=== PATIENT | female | born 1965 | race Caucasian/White ===

== ENCOUNTER → 2020-08-15 | Outpatient (CLI) | payer MEDICARE ==
--- NOTE | 2020-08-15 13:34 | RADIOLOGY REPORT (SQ) ---
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 Liver mass was seen on a C T 1-1/2 months ago at outside facility. Abdominal pain intermittently. Decreased appetite. Previou s cholecystectomy. COMPARISON: None. TECHNIQUE: CT scan of the chest performed using helical scanning technique with dynamic intravenous contrast injection. Images reviewed with lung, soft tissue and bone windows. Reconstructed coronal and sagittal MPR and MIP images reviewed. All images stored on PACS. All CT scanners at this facility use dose modulation, iterative reconstruction, and/or weight based d osing when appropriate to reduce radiation dose to as low as reasonably achievable (ALARA). [facility]: Dose Right [facility]: CareDose [facility]: Dose Right [facility]: Teradose 4D [facility]: Q-Sensei CONTRAST TYPE AND DOSE: contrast/concentration: Isovue 350.00 mmol/ml; Total Contrast Delivered: 80. 0 ml; Total Saline Delivered: 40.0 ml RENAL FUNCTION: GFR > 60. RADIATION DOSE: CT Rad equipment meets quality standard of care and radiation dose reduction technTransferWise ues were employed. CTDIvol: 5.2 mGy. DLP: 202 mGy-cm. . LIMITATIONS: None. FINDINGS: LUNGS AND PLEURA: The trachea has normal caliber and appearance. No bronchial wall thicke nicky or bronchiectasis. No focal consolidation or pleural effusion. Mild biapical pleural and paren chymal scarring. No suspicious pulmonary nodules. No pneumothorax. HILAR AND MEDIASTINAL STRUCTURES: No identified masses or abnormal nodes. HEART AND VASCULAR STRUCTURES: No aneurysm or dissection. No central pulmonary emboli. No pericardi al effusion. HARDWARE: None in the chest. UPPER ABDOMEN: There is a 2.5 x 2 cm lesion in the left hepatic lobe which demonstrates peripheral pu ddling of contrast suggestive of a benign hepatic hemangioma. Status post cholecystectomy. No bilia ry ductal dilation. THYROID AND OTHER SOFT TISSUES: No masses. No adenopathy. BONES: No significant finding. OTHER: No other significant finding. IMPRESSION: 1. No acute cardiopulmonary disease. No suspicious pulmonary nodules. 2. Left hepatic lobe lesion with peripheral puddling of contrast suggestive of a benign hemangioma. Please see separate dictation MRI abdomen same date. TECHNICAL DOCUMENTATION: JOB ID: [id number] Quality ID # [id number]: Final reports with documentation of one or more dose reduction techniques (e.g., Au tomated exposure control, adjustment of the mA and/or kV according to patient size, use of iterative reconstruction technique) 2010 [employer]- All Rights Reserved Reading location - IP/workstation name: [email or web address]
--- NOTE | 2020-08-15 13:39 | RADIOLOGY REPORT (SQ) ---
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 Liver mass seen on outside CT 1.5 months ago. Intermittent abdominal pain and decreased appetit e. Nausea and abdominal pain. Previous cholecystectomy. COMPARISON: None. TECHNIQUE: Multiplanar multisequence imaging performed without and with contrast including sagittal, axial and coronal T2, axial T1, axial gradient fat sat T1, axial, sagittal and coronal fat sat T1 po st contrast. CONTRAST TYPE AND DOSE: 20 ML ProHance RENAL FUNCTION: Not indicated. ACR Type II contrast agent associated with few, if any, unconfounded cases of NSF LIMITATIONS: There is respiratory motion on multiple sequences which obscures some detail. FINDINGS: LIVER: The liver has normal size and contour. Within the medial left hepatic lobe there i s a 2.8 x 2.1 cm lobulated T2 hyperintense, T1 hypointense lesion which demonstrates peripheral nodul ar enhancement with puddling of contrast and gradual fill-in on delayed phase images, consistent with a benign hepatic hemangioma. SPLEEN: Normal size. No focal lesions. PANCREAS: No masses. No adjacent inflammation or peripancreatic fluid collections. Pancreatic duct no t dilated. GALLBLADDER: No masses. No stones. No gallbladder wall thickening or pericholecystic fluid. ADRENAL GLANDS: No significant masses or asymmetry. RIGHT KIDNEY AND URETER: Small renal cortical cysts. No solid mass or abnormal enhancement. No hydr onephrosis. LEFT KIDNEY AND URETER: Small renal cortical cysts. No solid mass. No hydronephrosis. AORTA AND VESSELS: No aneurysm. No dissection. Renal arteries, SMA, celiac without stenosis. RETROPERITONEUM: No retroperitoneal adenopathy, hemorrhage or masses. BOWEL: No visualized masses. No inflammation. No significant dilatation. ABDOMINAL WALL AND PERITONEUM: No hernias. No free fluid. BONES: No acute or significant findings. OTHER: No other significant finding. IMPRESSION: Benign hepatic hemangioma. No suspicious hepatic lesion. TECHNICAL DOCUMENTATION: JOB ID: [id number] [employer]- All Rights Reserved Reading location - IP/workstation name: [email or web address]
== END ==
LOC: RAD 07:45
PROVIDERS: ATTEND Internal Medicine
DX: R07.9 Chest pain, unspecified (principal); R10.2 Pelvic and perineal pain; R10.9 Unspecified abdominal pain; D37.8 Neoplasm of uncertain behavior of other specified digestive organs
CPT/HCPCS: 82565; 74183; 71260; A9576

== ENCOUNTER 2020-09-09 07:06 | Emergency (ER) | payer MEDICARE ==
[2020-09-09 07:18] VITALS: BP 133/67
[2020-09-09] MEDS ORDERED: ONDANSETRON HCL INJ/PF 4 MG/2 ML SDV IV ONE (08:32)
[2020-09-09] MEDS ORDERED: NORMAL SALINE 1000 ML 1,000 ML IV ONE (08:32)
--- NOTE | 2020-09-09 09:24 | RADIOLOGY REPORT (SQ) ---
EXAM DESCRIPTION: CHEST SINGLE VIEW IMAGES COMPLETED DATE/TIME: 09/09/2020 9:12 am REASON FOR STUDY: cough COMPARISON: None. EXAM PARAMETERS: NUMBER OF VIEWS: One view. TECHNIQUE: Single frontal radiographic view of the chest acquired. RADIATION DOSE: NA LIMITATIONS: None. FINDINGS: LUNGS AND PLEURA: No opacities, masses or pneumothorax. No pleural effusion. MEDIASTINUM AND HILAR STRUCTURES: No masses. Contour normal. HEART AND VASCULAR STRUCTURES: Heart normal in size. Normal vasculature. BONES: No acute findings. HARDWARE: None in the chest. OTHER: No other significant finding. IMPRESSION: NO ACUTE RADIOGRAPHIC FINDING IN THE CHEST. TECHNICAL DOCUMENTATION: JOB ID: [id number] 2010 [employer]- All Rights Reserved Reading location - IP/workstation name: [email or web address]
[2020-09-09] MEDS ORDERED: ONDANSETRON 4 MG TAB.RAPDIS PO ONE (09:41)
--- NOTE | 2020-09-09 09:47 | ER Document Report ---
ED General - General Chief Complaint: Flu Symptoms Stated Complaint: NAUSEA,CHILLS Time Seen by Provider: 09/09/20 08:30 Primary Care Provider: PANKAJ VO MD [Primary Care Provider] - Follow up as needed - [facility] Notes: Chief complaint: Abdominal pain and nausea History of present illness: 55-year-old female reports past history of peptic ulcer disease previously taking ranitidine now out of medication having intermittent cramping epigastric discomfort with some associated nausea without vomiting. Weight is stable. Normal bowel movements. Previous cholecystectomy. No other surgery. Says she had an abdominal CT obtained by her primary care provider about 6 months ago I subsequently recommended MRI abdomen pelvis which was done here. She says she did not have a full understanding of abnormalities detected but was told that she "might have some cysts" involving the liver and ovaries. I was able to pull records on this study from 08/05/2020 and what it showed was probable hepatic hemangioma. She subsequently was seen by Dr. Setven in the oncology clinic and had tumor markers checked which were apparently normal. She smokes about 1/3 pack of cigarettes per day. She drinks alcohol socially. She denies use of salicylates or NSAIDs. Also has concern about a possible abdominal wall hernia. 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 Says she is not been back to see her primary care doctor because she "just has not had time". Patient denies any known Covid exposure. She has not been tested for Covid. She denies fever chills. Has some occasional dry cough. 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 Weight stable. HENT: Negative for sore throat. Eyes: Negative for visual changes. Cardiovascular: Negative for chest pain. Respiratory: Nonproductive cough. Negative for shortness of breath. Gastrointestinal: As per HPI. Genitourinary: Negative for dysuria. Musculoskeletal: Negative for back pain. Skin: Negative for rash. Neurological: Negative for headaches, focal weakness or numbness. 10 point ROS negative except as marked above and in HPI. Physical Exam - Vital signs Vitals: Temp Pulse Resp BP Pulse Ox 97.7 F 69 16 133/67 H 99 09/09/20 07:14 09/09/20 07:14 09/09/20 07:14 09/09/20 07:14 09/09/20 07:14 - Notes Notes: GENERAL: Slender middle-age female appearing in no acute distress. SKIN: Good turgor no rashes. HEAD: Normocephalic atraumatic. EYES: PERRLA. EOMI. Conjunctivae and sclerae clear. EARS: CANALS AND TMS CLEAR. NOSE: CLEAR. MOUTH: Moist mucosa. Good dentition. No stridor or edema. No drooling. NECK: Supple. No masses or thyromegaly. No adenopathy. Carotids 2+ without bruits. No JVD. BACK: Symmetrical without tenderness. CHEST: Respirations unlabored. Few scattered wheezes bilaterally which clear with deep cough. HEART: Regular rhythm. No murmur gallop or rub. ABDOMEN: Mild diastases recti upper abdomen. No gross herniation. Soft nontender without masses, organomegaly or rebound. Bowel sounds normally active. No bruits. GENITALIA: Deferred. EXTREMITIES: No edema. No calf tenderness. Cap refill less than 1.5 seconds. Dorsalis pedis and posterior tibial pulses 3+ and symmetrical. NEUROLOGICAL: GCS 15. Alert and oriented x3. Normal gait. Fluent speech. Cranial nerves II through XII intact. Sensorimotor and cerebellar normal. Normal tone. PSYCHIATRIC: Appropriate affect. Course - Re-evaluation Re-evalutation: 09/09/20 12:08 Labs unremarkable. Nonsurgical abdomen by exam. I think this lady probably has gastritis but will need follow-up with her primary care physician and she has ongoing symptoms may need EGD as an outpatient. Findings, clinical impression and plan of treatment have been discussed with patient/family. Understanding of current findings and recommendations has been acknowledged by them and there is agreement regarding disposition and follow-up. - Vital Signs Vital signs: Temp Pulse Resp BP Pulse Ox 97.7 F 69 22 H 133/67 H 100 09/09/20 07:14 09/09/20 07:14 09/09/20 10:00 09/09/20 07:14 09/09/20 10:00 - Laboratory Result Diagrams: 09/09/20 10:10 09/09/20 10:10 Laboratory results interpreted by me: 09/09/20 10:10 Urine Blood SMALL H - Diagnostic Test Radiology reviewed: Reports reviewed - Normal chest x-ray per radiologist. Discharge - Discharge Clinical Impression: Abdominal pain Condition: Stable Disposition: HOME, SELF-CARE Additional Instructions: Return here as needed for new or worsening symptoms. Follow-up with your primary care physician within the next 3 to 5 days Prescription medication has been written for you until you can be seen by your doctor. 3-day work note has been provided for you. Prescriptions: Sucralfate [Carafate 1 gm Tablet] 1 gm PO ACHS #120 tablet Forms: Return to Work Referrals: PANKAJ VO MD [Primary Care Provider] - Follow up as needed
[2020-09-09] MEDS ORDERED: MAG HYDROX/AL HYDROX/SIMETH SUSP 30 ML UDCUP PO ONE (10:20)
[2020-09-09 10:26] LABS: APPEARANCE,URINE CLEAR; BILIRUBIN,URINE NEGATIVE (NEGATIVE); COLOR,URINE STRAW; GLUCOSE, URINE NEGATIVE (NEGATIVE); KETONES,URINE NEGATIVE (NEGATIVE); PROTEIN,URINE NEGATIVE (NEGATIVE); URINE SPECIFIC GRAVITY 1.003; UROBILINOGEN,URINE NEGATIVE mg/dL (<2.0)
[2020-09-09 10:32] LABS: ABSOLUTE BASOPHILS # (AUTO) 0.1 10^3/uL (0.0-0.2); ABSOLUTE EOSINOPHILS # (AUTO) 0.4 10^3/uL (0.0-0.6); ABSOLUTE LYMPHOCYTES (AUTO) 2.6 10^3/uL (0.5-4.7); ABSOLUTE MONOCYTES (AUTO) 0.4 10^3/uL (0.1-1.4); BASOPHILS % (AUTO) 0.7 % (0-2); EOSINOPHILS % (AUTO) 4.2 % (0-6); HEMATOCRIT 40.7 % (36.0-47.0); LYMPHOCYTES % (AUTO) 27.5 % (13-45); MEAN CORPUSCULAR HGB CONC 34.4 g/dL (32.0-36.0); MEAN CORPUSCULAR VOLUME 87 fl (80-97); MONOCYTES % (AUTO) 3.9 % (3-13); PLATELET COUNT 299 10^3/uL (150-450); RED BLOOD COUNT 4.67 10^6/uL (3.72-5.28); RED CELL DISTRIBUTION WIDTH 13.3 % (11.5-14.0); SEGMENTED NEUTROPHILS % (AUTO) 63.7 % (42-78); TOTAL CELLS COUNTED % (AUTO) 100 %; WHITE BLOOD COUNT 9.4 10^3/uL (4.0-10.5)
[2020-09-09] MEDS ORDERED: LIDOCAINE 2% VISCOUS SOLN 15 ML UDCUP PO ONE (10:32)
[2020-09-09 10:38] LABS: ALBUMIN 4.5 g/dL (3.5-5.0); ALKALINE PHOSPHATASE 110 U/L (38-126); ANION GAP 8 (5-19); ASPARTATE AMINO TRANSFERASE 26 U/L (14-36); BILIRUBIN,DIRECT 0.2 mg/dL (0.0-0.4); BILIRUBIN,TOTAL 0.6 mg/dL (0.2-1.3); BLOOD UREA NITROGEN 11 mg/dL (7-20); CALCIUM 9.9 mg/dL (8.4-10.2); CARBON DIOXIDE 29 mmol/L (22-30); CHLORIDE 103 mmol/L (98-107); GLUCOSE 97 mg/dL (75-110); POTASSIUM 4.1 mmol/L (3.6-5.0); TOTAL PROTEIN 7.2 g/dL (6.3-8.2)
== END 2020-09-09 12:28 | disposition home or self-care (01) ==
LOC: ER 07:06
DX: K27.9 Peptic ulcer, site unspecified, unspecified as acute or chronic, without hemorrhage or perforation (principal); F17.210 Nicotine dependence, cigarettes, uncomplicated; R05 Cough; F17.200 Nicotine dependence, unspecified, uncomplicated; Z88.8 Allergy status to other drugs, medicaments and biological substances; Z88.6 Allergy status to analgesic agent; Z88.5 Allergy status to narcotic agent; Z88.2 Allergy status to sulfonamides
CPT/HCPCS: 99284; 36415; 85025; 80053; 81001; 71045; A9270 ×2; J3490; S0119

== ENCOUNTER 2020-11-22 05:33 | Day surgery (SDC) | payer MEDICARE ==
[2020-11-19 09:36] LABS: APPEARANCE,URINE CLEAR; BILIRUBIN,URINE NEGATIVE (NEGATIVE); COLOR,URINE STRAW; GLUCOSE, URINE NEGATIVE (NEGATIVE); KETONES,URINE NEGATIVE (NEGATIVE); LEUKOCYTE ESTERASE,URINE TRACE (NEGATIVE); NITRITE,URINE NEGATIVE (NEGATIVE); PROTEIN,URINE NEGATIVE (NEGATIVE); URINE SPECIFIC GRAVITY 1.005; UROBILINOGEN,URINE NEGATIVE mg/dL (<2.0)
--- NOTE | 2020-11-19 10:07 | RADIOLOGY REPORT (SQ) ---
EXAM DESCRIPTION: CHEST 2 VIEWS IMAGES COMPLETED DATE/TIME: 11/19/2020 9:46 am REASON FOR STUDY: PRE OP COMPARISON: 09/09/2020 EXAM PARAMETERS: NUMBER OF VIEWS: two views TECHNIQUE: Digital Frontal and Lateral radiographic views of the chest acquired. RADIATION DOSE: NA LIMITATIONS: none FINDINGS: LUNGS AND PLEURA: No opacities, masses or pneumothorax. No pleural effusion. MEDIASTINUM AND HILAR STRUCTURES: No masses or contour abnormalities. HEART AND VASCULAR STRUCTURES: Heart normal size. No evidence for failure. BONES: No acute findings. HARDWARE: None in the chest. OTHER: No other significant finding. IMPRESSION: NO ACUTE RADIOGRAPHIC FINDING IN THE CHEST. TECHNICAL DOCUMENTATION: JOB ID: [id number] 2010 [employer]- All Rights Reserved Reading location - IP/workstation name: [email or web address]
[2020-11-19 10:08] LABS: HEMATOCRIT 37.2 % (36.0-47.0); MEAN CORPUSCULAR HEMOGLOBIN 29.8 pg (27.0-33.4); MEAN CORPUSCULAR VOLUME 85 fl (80-97); PLATELET COUNT 292 10^3/uL (150-450); RED BLOOD COUNT 4.38 10^6/uL (3.72-5.28); RED CELL DISTRIBUTION WIDTH 12.6 % (11.5-14.0); WHITE BLOOD COUNT 7.9 10^3/uL (4.0-10.5)
[2020-11-19 10:38] LABS: ALBUMIN 4.3 g/dL (3.5-5.0); ALKALINE PHOSPHATASE 96 U/L (38-126); ANION GAP 6 (5-19); ASPARTATE AMINO TRANSFERASE 19 U/L (14-36); BILIRUBIN,DIRECT 0.3 mg/dL (0.0-0.4); BILIRUBIN,TOTAL 0.4 mg/dL (0.2-1.3); BLOOD UREA NITROGEN 11 mg/dL (7-20); CALCIUM 9.7 mg/dL (8.4-10.2); CARBON DIOXIDE 31 mmol/L (22-30); CHLORIDE 103 mmol/L (98-107); GLUCOSE 91 mg/dL (75-110); POTASSIUM 4.3 mmol/L (3.6-5.0); TOTAL PROTEIN 7.4 g/dL (6.3-8.2)
--- NOTE | 2020-11-19 14:55 | EKG REPORT ---
SEVERITY:- BORDERLINE ECG - SINUS RHYTHM PROBABLE LEFT ATRIAL ABNORMALITY : Confirmed by: Radha Rodriguez 19-Nov-2020 14:54:07
[~2020-11-22 05:33] MED LIST: CEFAZOLIN 1 GM/D5W RTU 1 GM/50 ML RTUPB IV PRN; LACTATED RINGERS 1000 ML IV PRN; LIDOCAINE 0.5% INJ-PF (5 MG/ML) 50 ML SDV SUBCUT PRN
[2020-11-22] MEDS ORDERED: CEFAZOLIN 1 GM/D5W RTU 1 GM/50 ML RTUPB IV ONE (05:38)
[2020-11-22] MEDS ORDERED: NA PHOS,M-B/NA PHOS,DI-BA (ADULT) 133 ML ENEMA PR ONE ×2 (06:20→07:00)
[2020-11-22] MEDS ORDERED: FENTANYL CITRATE INJ/PF 250 MCG/5 ML AMPULE ONE (06:44)
[2020-11-22] MEDS ORDERED: PROPOFOL 0 MG/0 ML INFUS..BTL IV ONE (06:45)
[2020-11-22] MEDS ORDERED: MIDAZOLAM 2 MG/2 ML INJ ONE (06:45)
[2020-11-22] MEDS ORDERED: HYDROMORPHONE HCL INJ/PF 2 MG/ML AMPULE ONE (06:45)
[2020-11-22] MEDS ORDERED: EPHEDRINE SULFATE INJ 50 MG/1 ML AMPULE ONE (06:45)
[2020-11-22] MEDS ORDERED: SUGAMMADEX SODIUM 200 MG/2 ML SDV IV ONE (06:45)
[2020-11-22] MEDS ORDERED: PROPOFOL INJ 200 MG/20 ML VIAL IV ONE (06:46)
[2020-11-22] MEDS ORDERED: LIDOCAINE 2% INJ (20 MG/ML) 20 ML MDV ONE (06:48)
[2020-11-22] MEDS ORDERED: LIDOCAINE 1%/EPINEPHRINE INJ 20 ML VIAL ONE (07:06)
[2020-11-22] MEDS ORDERED: ESTROGENS,CONJUGATED 0.625 MG/1 GM 30 GM TUBE PV ONE (08:00)
[2020-11-22] MEDS ORDERED: FENTANYL CITRATE INJ/PF 100 MCG/2 ML AMPUL IV PRN ×3 (08:16)
[2020-11-22] MEDS ORDERED: MEPERIDINE HCL/PF INJ 25 MG/1 ML DISP.SYRIN IV PRN (08:16)
[2020-11-22] MEDS ORDERED: DIPHENHYDRAMINE HCL 50 MG/ML VIAL IV PRN (08:16)
[2020-11-22] MEDS ORDERED: PROMETHAZINE HCL INJ 25 MG/1 ML VIAL IV PRN ×3 (08:16→09:22)
[2020-11-22] MEDS ORDERED: SIMETHICONE 80 MG TAB.CHEW PO PRN (09:22)
[2020-11-22] MEDS ORDERED: OXYCODONE-ACETAMINOPHEN 5-325 MG TABLET PO PRN ×2 (09:22)
[2020-11-22] MEDS ORDERED: ACETAMINOPHEN 325 MG TABLET PO PRN (09:22)
--- NOTE | 2020-11-22 09:37 | Operative Report ---
Operative Report DATE OF SURGERY: 11/22/20 PREOPERATIVE DIAGNOSIS: uterine fibroids, uterovaginal prolapse, pelvic pain POSTOPERATIVE DIAGNOSIS: Same OPERATION: Attic assisted total laparoscopic hysterectomy with bilateral salpingo-oophorectomy SURGEON: ARNOLD BRANDON ANESTHESIA: GA TISSUE REMOVED OR ALTERED: Uterus cervix bilateral fallopian tubes and ovaries COMPLICATIONS: None ESTIMATED BLOOD LOSS: 100 cc INTRAOPERATIVE FINDINGS: 6 weeks size uterus grade 1-2 prolapse of the anterior vagina at the beginning of case, left ovary had to cystic-appearing masses on the ovary they did look benign in nature however were very inconsistent with the rest of the ovarian tissue, once the hysterectomy was completed the vagina was reinspected and the anterior prolapse had been corrected with the incorporation of the uterosacral ligament and the vaginal cuff closure PROCEDURE: Patient was taken to the operating room prepared and draped in normal sterile fashion in dorsolithotomy position. Under sterile conditions a Senior catheter was placed to gravity. Speculum was placed into the vagina and the cervix was grasped on the anterior lip with a single-tooth tenaculum. The cervix was then dilated to accommodate a medium V care uterine manipulator. Manipulator was placed gloves were changed and attention was turned to the upper portion of the case. A 2-1/2 cm umbilical skin incision was made 11 blade and this was carried through to the underlying layer of fascia with the same 11 blade. It was grasped to Chuy's acted with Anuj's. New cavity was entered bluntly. A GelPort was placed in a normal fashion the camera port and air seal in the appropriate locations. Blanco was then inflated with approximately 2 L of CO2 gas. The camera was then introduced into the peritoneal cavity through the camera port and the patient was placed in steep Trendelenburg. The above findings were note d. Under direct visualization two 5 mm ports were placed approximately 10 cm on either side of the umbilicus. The robot was then docked with the vessel sealer placed on the patient's left and the monopolar scissors placed placed on the patient's right. I then unscrubbed and set at the robotic console beginning with the left adnexa the IP ligament was transected from the vaginal sidewall using the vessel sealer and monopolar scissors as needed. The uterine artery was skeletonized using blunt dissection and ligated using the vessel sealer down to the level of the external cervical os. The bladder flap was then begun using monopolar scissors and blunt dissection over the V care cup noted through the mucosa. Attention was then turned to the right adnexa where the IP ligament was transected in a similar fashion. The Uterine artery was then transected using the vessel sealer and skeletonized using blunt dissection. The vessel sealer was again used to completely transect the uterine artery down to the level of the external cervical os. The bladder flap was completed using similar sharp and blunt dissection. Once the bladder was felt to be adequately away from the lower uterine segment, the colpotomy was begun on the anterior aspect of the cervix following the outline of the V care cup mucosa. The cup was followed in a circumferential fashion completely around the cervix estimate was completely freed. The specimen was then removed through the vaginal defect. The instruments were then changed to a Gideon needle tank driver and pro-grasp. AV lock needle was introduced through the assistance port. The lock needle was used to close the vaginal cuff and hemostasis. The needle was then removed through the assistance port. The peritoneal cavity was carefully inspected the ureters were noted to both be peristalsing and there was no signs of hydroureter. The robot was then undocked. The fascia was closed at the umbilical skin incision seen 0 Vicryl 3 skin incisions were closed using 4-0 Vicryl. The vagina was then examined once more under sterile conditions . The previously noted anterior prolapse was significantly better . Anesthesia had the patient Valsalva and the there was no signs of prolapse with Valsalva . For the decision was made to forego doing the anterior repair that was listed as a possible procedure. sponge lap and needle counts were correct x2 and the patient was taken to recovery in stable condition.
[2020-11-22] MEDS ORDERED: FENTANYL CITRATE INJ/PF 100 MCG/2 ML AMPUL ONE (09:48)
[2020-11-22] MEDS ORDERED: ACETAMINOPHEN 1,000 MG/100 ML RTUPB IV ONE (10:22)
[2020-11-22] MEDS ORDERED: OXYCODONE-ACETAMINOPHEN 5-325 MG TABLET ONE (10:22)
[2020-11-22] MEDS: DOCUSATE SODIUM 100 MG CAPSULE PO SCH ×2 (12:37→18:19)
[2020-11-22] MEDS ORDERED: DIPHENHYDRAMINE HCL 50 MG/ML VIAL ONE (14:41)
[2020-11-22] MEDS ORDERED: SUCCINYLCHOLINE CHLORIDE INJ 200 MG/10 ML VIAL ONE (14:41)
[2020-11-22] MEDS ORDERED: METOPROLOL TARTRATE PF/INJ 5 MG/5 ML SDV IV ONE (14:41)
[2020-11-22] MEDS ORDERED: ONDANSETRON HCL INJ/PF 4 MG/2 ML SDV ONE (14:41)
[2020-11-22] MEDS ORDERED: DEXAMETHASONE SOD PHOSPHATE INJ 4 MG/1 ML VIAL ONE (14:41)
[2020-11-22] MEDS ORDERED: METOCLOPRAMIDE HCL INJ/PF 10 MG/2 ML SDV ONE (14:41)
[2020-11-22] MEDS ORDERED: ROCURONIUM BROMIDE INJ 50 MG/5 ML VIAL IV ONE (14:41)
[2020-11-22] MEDS ORDERED: KETOROLAC TROMETHAMINE 60 MG/2 ML SDV ONE (14:41)
[2020-11-22] MEDS: KETOROLAC TROMETHAMINE INJ/PF 30 MG/1 ML SDV IV SCH ×2 (15:03→22:43)
[2020-11-22] MEDS: RINGERS SOLUTION,LACTATED 1,000 ML IV PRN (15:19)
[2020-11-22] MEDS: HYDROMORPHONE HCL INJ/PF 2 MG/ML AMPULE IV PRN ×2 (18:18→23:57)
[2020-11-23] MEDS: RINGERS SOLUTION,LACTATED 1,000 ML IV PRN (00:04)
[2020-11-23] MEDS: HYDROMORPHONE HCL INJ/PF 2 MG/ML AMPULE IV PRN (03:48)
[2020-11-23] MEDS: KETOROLAC TROMETHAMINE INJ/PF 30 MG/1 ML SDV IV SCH (06:18)
[2020-11-23 06:56] LABS: HEMOGLOBIN 10.8 g/dL (12.0-15.5); MEAN CORPUSCULAR HEMOGLOBIN 29.4 pg (27.0-33.4); MEAN CORPUSCULAR HGB CONC 33.8 g/dL (32.0-36.0); MEAN CORPUSCULAR VOLUME 87 fl (80-97); PLATELET COUNT 244 10^3/uL (150-450); RED BLOOD COUNT 3.67 10^6/uL (3.72-5.28); RED CELL DISTRIBUTION WIDTH 13.3 % (11.5-14.0); WHITE BLOOD COUNT 12.1 10^3/uL (4.0-10.5)
--- NOTE | 2020-11-23 07:55 | PDOC DISCHARGE SUMMARY ---
Impression - Admit/DC Date/PCP Admission Date/Primary Care Provider: LITZY VO PA-C Discharge Date: 11/23/20 - Discharge Diagnosis (1) Uterovaginal prolapse Is this a current diagnosis for this admission?: Yes (2) Abnormal uterine bleeding Is this a current diagnosis for this admission?: Yes (3) Pelvic pain Is this a current diagnosis for this admission?: Yes - Assessment Summary: Patient underwent a robotic assisted total laparoscopic hysterectomy with bilateral salpingectomy and bilateral oophorectomy. She has had an unremarkable postoperative course and is tolerating a regular diet voiding on her own ambulating well and passing flatus. Is now ready for discharge home - Additional Information Resuscitation Status: Full Code Discharge Diet: As Tolerated Discharge Activity: Balance Activity w/Rest, No Driving, No Lifting Over 10 Pounds, No Lifting/Push/Pulling, Pelvic Rest, No tub bath, Walk Frequently Referrals: ARNOLD BRANDON MD [ACTIVE STAFF] - 12/07/20 10:00 am ( CALL THE OFFICE OF ANY QUESTIONS OR CONCERNS.) LITZY VO PA-C [Primary Care Provider] - Prescriptions: Oxycodone HCl/Acetaminophen [Percocet 5-325 mg Tablet] 1 tab PO Q4HP PRN #20 tablet PRN Reason: Ketorolac Tromethamine [Toradol 10 mg Tablet] 10 mg PO Q6HP PRN #30 tablet PRN Reason: Docusate Sodium [Colace 100 mg Capsule] 100 mg PO BID #60 capsule Home Medications: Trazodone HCl 150 mg PO QHS 11/19/20 Citalopram Hydrobromide [Citalopram HBr] 40 mg PO QHS 11/22/20 Levothyroxine Sodium [Euthyrox] 100 mcg PO Q6AM 11/22/20 Docusate Sodium [Colace 100 mg Capsule] 100 mg PO BID #60 capsule 11/23/20 Ketorolac Tromethamine [Toradol 10 mg Tablet] 10 mg PO Q6HP PRN #30 tablet 11/23/20 Oxycodone HCl/Acetaminophen [Percocet 5-325 mg Tablet] 1 tab PO Q4HP PRN #20 tablet 11/23/20 History of Present Illiness History of Present Illness: QUINTEN JAMES is a 55 year old female Physical Exam - Physical Exam Vital Signs: Temp Pulse Resp BP Pulse Ox 97.5 F 64 16 112/60 95 11/23/20 03:39 11/23/20 03:39 11/23/20 03:39 11/23/20 03:39 11/23/20 03:39 Intake & Output 11/22/20 11/23/20 11/24/20 06:59 06:59 06:59 Intake Total 2725 Output Total 1500 Balance 1225 Results Laboratory Results: WBC 12.1 10^3/uL (4.0-10.5) H 11/23/20 06:29 RBC 3.67 10^6/uL (3.72-5.28) L 11/23/20 06:29 Hgb 10.8 g/dL (12.0-15.5) L 11/23/20 06:29 Hct 32.0 % (36.0-47.0) L 11/23/20 06:29 MCV 87 fl (80-97) 11/23/20 06:29 MCH 29.4 pg (27.0-33.4) 11/23/20 06:29 MCHC 33.8 g/dL (32.0-36.0) 11/23/20 06:29 RDW 13.3 % (11.5-14.0) 11/23/20 06:29 Plt Count 244 10^3/uL (150-450) 11/23/20 06:29 Sodium 140.4 mmol/L (137-145) 11/19/20 09:06 Potassium 4.3 mmol/L (3.6-5.0) 11/19/20 09:06 Chloride 103 mmol/L (98-107) 11/19/20 09:06 Carbon Dioxide 31 mmol/L (22-30) H 11/19/20 09:06 Anion Gap 6 (5-19) 11/19/20 09:06 BUN 11 mg/dL (7-20) 11/19/20 09:06 Creatinine 0.48 mg/dL (0.52-1.25) L 11/19/20 09:06 Est GFR ( Amer) > 60 (>60) 11/19/20 09:06 Est GFR (MDRD) Non-Af > 60 (>60) 11/19/20 09:06 Glucose 91 mg/dL (75-110) 11/19/20 09:06 Calcium 9.7 mg/dL (8.4-10.2) 11/19/20 09:06 Total Bilirubin 0.4 mg/dL (0.2-1.3) 11/19/20 09:06 Direct Bilirubin 0.3 mg/dL (0.0-0.4) 11/19/20 09:06 Neonat Total Bilirubin Not Reportable 11/19/20 09:06 Neonat Direct Bilirubin Not Reportable 11/19/20 09:06 Neonat Indirect Bili Not Reportable 11/19/20 09:06 AST 19 U/L (14-36) 11/19/20 09:06 ALT 13 U/L (<35) 11/19/20 09:06 Alkaline Phosphatase 96 U/L (38-126) 11/19/20 09:06 Total Protein 7.4 g/dL (6.3-8.2) 11/19/20 09:06 Albumin 4.3 g/dL (3.5-5.0) 11/19/20 09:06 Urine Color STRAW 11/19/20 08:45 Urine Appearance CLEAR 11/19/20 08:45 Urine pH 8.0 (5.0-9.0) 11/19/20 08:45 Ur Specific [place] 1.005 11/19/20 08:45 Urine Protein NEGATIVE mg/dL (NEGATIVE) 11/19/20 08:45 Urine Glucose (UA) NEGATIVE mg/dL (NEGATIVE) 11/19/20 08:45 Urine Ketones NEGATIVE mg/dL (NEGATIVE) 11/19/20 08:45 Urine Blood NEGATIVE (NEGATIVE) 11/19/20 08:45 Urine Nitrite NEGATIVE (NEGATIVE) 11/19/20 08:45 Urine Bilirubin NEGATIVE (NEGATIVE) 11/19/20 08:45 Urine Urobilinogen NEGATIVE mg/dL (<2.0) 11/19/20 08:45 Ur Leukocyte Esterase TRACE (NEGATIVE) H 11/19/20 08:45 Urine RBC (Auto) 0 /HPF 11/19/20 08:45 Urine Bacteria (Auto) TRACE /HPF 11/19/20 08:45 Squamous Epi Cells Auto <1 /HPF 11/19/20 08:45 Urine Mucus (Auto) RARE /LPF 11/19/20 08:45 Urine Ascorbic Acid NEGATIVE (NEGATIVE) 11/19/20 08:45 Urine HCG, Qual NEGATIVE (NEGATIVE) 11/22/20 06:00 COVID-19 Source See comment 11/19/20 09:08 COVID-19 (SHEY) Not Detected (Not Detect) 11/19/20 09:08 Blood Type B POSITIVE 11/19/20 09:06 Antibody Screen NEGATIVE 11/19/20 09:06 Impressions: Chest X-Ray 11/19/20 09:38 IMPRESSION: NO ACUTE RADIOGRAPHIC FINDING IN THE CHEST. Stroke Is this a Stroke Patient?: No Acute Heart Failure Is this a Heart Failure Patient?: No
[2020-11-23] MEDS ORDERED: INFLUENZA QUAD (6MOS+) 2020-21 VAC 0.5 ML SYR IM ONE (08:00)
[2020-11-23 09:02] VITALS: BP 119/52
[2020-11-23] MEDS: DOCUSATE SODIUM 100 MG CAPSULE PO SCH (09:36)
[2020-11-23] MEDS ORDERED: IBUPROFEN 800 MG TABLET PO SCH (12:00)
== END 2020-11-23 10:07 | disposition home or self-care (01) ==
LOC: OROUT 05:33 → 2N 10:53 → OROUT 11-23 10:07
PROVIDERS: ATTEND Obstetrics & Gynecology
DX: N81.4 Uterovaginal prolapse, unspecified (principal); N93.9 Abnormal uterine and vaginal bleeding, unspecified; R10.2 Pelvic and perineal pain; D25.1 Intramural leiomyoma of uterus; N83.8 Other noninflammatory disorders of ovary, fallopian tube and broad ligament; D27.1 Benign neoplasm of left ovary; Z01.812 Encounter for preprocedural laboratory examination; Z20.822 Contact with and (suspected) exposure to COVID-19; Z79.899 Other long term (current) drug therapy; F32.9 Major depressive disorder, single episode, unspecified; Z90.49 Acquired absence of other specified parts of digestive tract; F17.210 Nicotine dependence, cigarettes, uncomplicated; E07.9 Disorder of thyroid, unspecified; Z79.890 Hormone replacement therapy; Z23 Encounter for immunization
CPT/HCPCS: 93005; 86900; 86901; 36415 ×2; 86850; 85027 ×2; 81025; 80053; 81001; 88307 ×2; 71046; 90686; 94799; 93010; 00840; 58571; G0008; C1758; A4649; U0003; J2250; J3490 ×4; J0690; J1100; J1200; A9270 ×4; J1885 ×3; J3010 ×2; J2765; J1170 ×2; J0330; J2405; J7120 ×2; J2704; J0131; C9803; 840; 87635; 90471